=== PATIENT | female | born 1970 | race American Indian/Alaskan Native ===

== ENCOUNTER 2019-03-02 11:46 | Day surgery (SDC) | payer MEDICAID ==
[~2019-03-02] VITALS: Ht 162.6 cm; Wt 61.2 kg
[2019-03-02] MEDS ORDERED: LACTATED RINGERS 1,000 ML IV SCH (12:30)
[2019-03-02 12:55] LABS: UCG SCREEN NEGATIVE
[2019-03-02] MEDS ORDERED: RISP2 PO (13:20)
[2019-03-02] MEDS ORDERED: HYDR25TA PO (13:20)
[2019-03-02] MEDS ORDERED: RANI150T7 PO (13:20)
[2019-03-02] MEDS ORDERED: SERT-112 PO (13:20)
[2019-03-02] MEDS ORDERED: DOCU-272 PO (13:20)
[2019-03-02] MEDS ORDERED: TAMO10TA4 PO (13:20)
[2019-03-02] MEDS ORDERED: BACL-141 PO (13:20)
[2019-03-02] MEDS ORDERED: CYAN-33 PO (13:20)
[2019-03-02] MEDS ORDERED: ATOR80TA PO (13:20)
[2019-03-02] MEDS ORDERED: CHOL200059 PO (13:20)
[2019-03-02] MEDS ORDERED: TEST100V11 IM (13:20)
[2019-03-02] MEDS ORDERED: BUPIVACAINE/EPINEPH/PF 0.25%/0.0005 10ML ONE (13:45)
[2019-03-02] MEDS ORDERED: BACITRACIN 50,000 UNITS/VIAL ONE (13:45)
[2019-03-02] MEDS ORDERED: MORPHINE SULFATE/PF 1MG/ML 10ML AMP ONE (16:06)
[2019-03-02] MEDS ORDERED: MIDAZOLAM HCL 2 MG/2 ML VIAL ONE (16:19)
[2019-03-02] MEDS ORDERED: PROPOFOL 200MG/20ML VIAL IV ONE (16:19)
[2019-03-02] MEDS ORDERED: FENTANYL CITRATE/PF 50MCG/ML 2ML VIAL ONE (16:19)
[2019-03-02] MEDS ORDERED: ONDANSETRON HCL 4MG/2ML INJ ONE (16:24)
[2019-03-02] MEDS ORDERED: DEXAMETHASONE 4MG/ML 1ML VIAL ONE (16:24)
[2019-03-02] MEDS ORDERED: ROCURONIUM BROMIDE 10MG/ML VIAL 5ML IV ONE (16:34)
[2019-03-02] MEDS ORDERED: HYDROMORPHONE HCL/PF 2MG/ML CPJ IV PRN (16:45)
[2019-03-02] MEDS ORDERED: ONDANSETRON HCL 4MG/2ML INJ IV PRN (16:45)
[2019-03-02] MEDS ORDERED: MEPERIDINE HCL/PF 25MG/ML CPJ IV PRN (16:45)
[2019-03-02] MEDS ORDERED: LABETALOL 5MG/ML SYR 20 MG/4 ML SYRINGE IV PRN (16:45)
[2019-03-02] MEDS ORDERED: HYDROCODONE/ACETAMINOPHEN 10/325MG TABLET PO PRN (19:45)
== END 2019-03-02 20:20 | disposition home or self-care (01) ==
LOC: OR 11:46
PROVIDERS: ATTEND Orthopaedic Surgery
DX: G56.22 Lesion of ulnar nerve, left upper limb (principal); G89.29 Other chronic pain; G58.8 Other specified mononeuropathies; J44.9 Chronic obstructive pulmonary disease, unspecified; I10 Essential (primary) hypertension; I25.10 Atherosclerotic heart disease of native coronary artery without angina pectoris; F17.210 Nicotine dependence, cigarettes, uncomplicated; F64.1 Dual role transvestism; E78.00 Pure hypercholesterolemia, unspecified; Z79.899 Other long term (current) drug therapy; Z79.82 Long term (current) use of aspirin
CPT/HCPCS: 64718; 81025; J0171; J1100; J2250; J2274; J2405; J2704; J3010; J3490